=== PATIENT | female | born 1955 ===

== ENCOUNTER 2017-03-04 08:52 | Day surgery (SDC) | payer OTHER ==
[2017-03-04] MEDS ORDERED: Lactated Ringer's 1,000 ML IV ONE (09:28)
[2017-03-04] MEDS ORDERED: Lidocaine 2% MPF (5 ml) Inj ONE (10:22)
[2017-03-04] MEDS ORDERED: Propofol 10 mg/ml Inj (20 ML) ONE (10:22)
[2017-03-04] MEDS ORDERED: Midazolam 2 MG/2 ML VIAL ONE (10:22)
[2017-03-04 10:59] VITALS: TEMP 97.2
[2017-03-04 11:13] VITALS: BP 137/70; PULSE 68; RESP 18; O2SAT 100
== END 2017-03-04 12:00 | disposition home or self-care (01) ==
LOC: H.ENDO 08:52
PROVIDERS: ATTEND Internal Medicine Gastroenterology
DX: Z12.11 Encounter for screening for malignant neoplasm of colon (principal); R06.83 Snoring; E78.5 Hyperlipidemia, unspecified; I10 Essential (primary) hypertension; R25.2 Cramp and spasm; K57.30 Diverticulosis of large intestine without perforation or abscess without bleeding; K29.50 Unspecified chronic gastritis without bleeding
CPT/HCPCS: 43239; 45378; 88305; 88342; J2250; J2704; J7120

== ENCOUNTER 2017-09-08 17:26 | Emergency (ER) | payer OTHER ==
[2017-09-08 17:39] VITALS: RESP 16
--- NOTE | 2017-09-08 18:44 | ED PDOC ---
HPI: Abdomen Time Seen by Provider: 09/08/17 17:30 Chief Complaint (Nursing): Abdominal Pain Chief Complaint (Provider): Abdominal Pain History Per: Patient History/Exam Limitations: no limitations Onset/Duration Of Symptoms: Days (x3) Location Of Pain/Discomfort: RUQ. denies: LUQ, Suprapubic Associated Symptoms: denies: Fever, Diarrhea Additional Complaint(s): 61 year old female, with a past medical history of a cardiac ablation (she doesnt know the type of ablation, for what rhythm), presents to the ED complaining of right upper quadrant abdominal pain radiating to the back, onset 3 days ago. denies rash. Patient had a cardiac ablation done at [facility] last week. Patient states she doesn't have pain now but had pain prior to arrival. Denies fever, diarrhea, hematuria, flank pain and lower abdominal pain. PMD: Dr. Alesia Garces Inserter: Dr. Cornell Past Medical History Reviewed: Historical Data, Nursing Documentation, Vital Signs Vital Signs: Last Vital Signs Temp 98.0 F 09/08/17 23:57 Pulse 89 09/08/17 23:57 Resp 16 09/08/17 23:57 BP 131/78 09/08/17 23:57 Pulse Ox 98 09/08/17 23:57 - Medical History PMH: HTN, Hypercholesterolemia Denies: Chronic Kidney Disease Other PMH: Cardiac Ablation - Surgical History Surgical History: Appendectomy, Cholecystectomy - Family History Family History: States: Unknown Family Hx - Social History Current smoker - smoking cessation education provided: No Alcohol: None Drugs: Denies - Immunization History Hx Tetanus Toxoid Vaccination: No Hx Influenza Vaccination: Yes Hx Pneumococcal Vaccination: Yes - Home Medications Home Medications: Ambulatory Orders Medication Instructions Recorded Amoxicillin/Clavulanate [Augmentin 1 tab PO BID #20 tab 07/21/17 875 MG-125 MG] Aspirin [Hypoluxo Aspirin] 81 mg PO DAILY #30 tab.chew 07/21/17 Atorvastatin [Lipitor] 20 mg PO DAILY 30 Days tab 07/21/17 Furosemide [Lasix] 20 mg PO DAILY #30 tab 07/21/17 Metoprolol Succinate [Toprol XL] 100 mg PO DAILY #30 tab 07/21/17 Montelukast [Singulair] 10 mg PO DAILY #30 tab 07/21/17 Prednisone 10 mg PO BID #3 tab.ds.pk 07/21/17 Saccharomyces Boulardi [Florastor] 250 mg PO BID #40 cap 07/21/17 amLODIPine [Norvasc] 10 mg PO DAILY #30 07/21/17 Nitrofurantoin Macrocrystals 100 mg PO BID #14 cap 09/08/17 [Macrobid] - Allergies Allergies/Adverse Reactions: Allergies Allergy/AdvReac Type Severity Reaction Status Date / Time No Known Allergies Allergy Verified 09/08/17 17:37 Review of Systems ROS Statement: Except As Marked, All Systems Reviewed And Found Negative Constitutional: Negative for: Fever Gastrointestinal: Positive for: Abdominal Pain (right upper quadrant abdominal pain; no flank pain, no lower abdominal pain). Negative for: Diarrhea Genitourinary Female: Negative for: Hematuria Physical Exam - Reviewed Nursing Documentation Reviewed: Yes Vital Signs Reviewed: Yes - Physical Exam Appears: Positive for: Non-toxic, No Acute Distress Head Exam: Positive for: ATRAUMATIC, NORMOCEPHALIC Skin: Positive for: Normal Color, Warm, Dry. Negative for: Rash Eye Exam: Positive for: Normal appearance, EOMI, PERRL ENT: Positive for: Normal ENT Inspection Neck: Positive for: Normal, Painless ROM, Supple Cardiovascular/Chest: Positive for: Regular Rate, Rhythm. Negative for: Murmur Respiratory: Positive for: Normal Breath Sounds. Negative for: Wheezing Gastrointestinal/Abdominal: Positive for: Normal Exam, Bowel Sounds, Soft, Tenderness (right upper quadrant tenderness; no suprapubic tenderness) Back: Positive for: Normal Inspection. Negative for: L CVA Tenderness, R CVA Tenderness, Vertebral Tenderness Extremity: Positive for: Normal ROM. Negative for: Pedal Edema, Deformity Neurologic/Psych: Positive for: Alert, Oriented. Negative for: Motor/Sensory Deficits - Laboratory Results Result Diagrams: 09/08/17 18:51 09/08/17 18:51 - ECG O2 Sat by Pulse Oximetry: 97 (RA) Pulse Ox Interpretation: Normal Medical Decision Making Medical Decision Making: Time: 1812 Plan: ruq abdominal pain rule out cholecystitis -- CMP -- CBC with differentials -- Urine C&S -- Urinalysis -- Gallbladder & Common Duct US Time: 2048 GALLBLADDER & COMMON DUCT US FINDINGS: Liver: Hepatic steatosis. Measures 12.8 cm. Gallbladder: Status post cholecystectomy. Common bile duct: Measures up to 3 mm. Pancreas: Pancreas obscured by bowel gas. Right kidney: No hydronephrosis. IMPRESSION: Hepatic steatosis. Thank you for allowing us to participate in the care of your patient. Dictated and Authenticated by: Carine Reddy MD 09/08/2017 8:49 PM Eastern Time ([place] & [place]) Time: 2049 -- Patient's lab results appear slightly anemic, slightly elevated LFTs, borderline UTI - pt aware of results -- Waiting on US for further diagnosis. Time: 2124 Plan: -- CT Abd & Pelvis W/o PO or IV Contrast -- EKG noted. Time: 22:41 CT Abd & Pelvis W/o PO or IV Contrast Results FINDINGS: Limitations: Lack of intravenous contrast. Lung bases: Minimal atelectasis/scarring. 0.2 cm RIGHT lower lobe nodule. RML calcified granuloma. Heart: Borderline cardiomegaly. Valvular calcifications. ABDOMEN: Liver: Unremarkable. Gallbladder and bile ducts: Cholecystectomy. No significant ductal dilation. Pancreas: Unremarkable. No ductal dilation. Spleen: No splenomegaly. Adrenals: No mass. Kidneys and ureters: No renal calculi. No hydronephrosis. Stomach and bowel: Scattered diverticula within colon. No associated inflammatory stranding. Segmental areas of probable underdistention of LEFT colon. No definite mural thickening. No obstruction. PELVIS: Appendix: Appendectomy. Bladder: Unremarkable. No stones. Reproductive: Unremarkable as visualized. ABDOMEN and PELVIS: Intraperitoneal space: No significant fluid collection. No free air. Bones/joints: Mild degenerative changes of spine. No acute fracture. Soft tissues: Moderate sized midline ventral hernia containing fat. Injection granulomas within gluteal soft tissues. Vasculature: Moderate atherosclerotic disease. No aneurysm. Lymph nodes: No pathologically enlarged lymph nodes. IMPRESSION: 1. Diverticulosis without definite CT evidence of diverticulitis. 2. Pulmonary nodule. For low-risk patients, no follow-up is necessary. For high- risk patients (smoking history or other known risk factors) an optional CT at 12 months could be performed. 3. Incidental/non-acute findings are described above. Patient aware of results including pulmonary nodule. pt tolerated po. pt appears comfortable, in no distress pt stable for discharge home. . Scribe Attestation: Documented by Daya Bhatti, acting as a scribe for Opal Brewer MD. Provider Scribe Attestation: All medical record entries made by the Scribe were at my direction and personally dictated by me. I have reviewed the chart and agree that the record accurately reflects my personal performance of the history, physical exam, medical decision making, and the department course for this patient. I have also personally directed, reviewed, and agree with the discharge instructions and disposition. Disposition - Clinical Impression Clinical Impression: Abdominal pain - Patient ED Disposition Is Patient to be Admitted: No Counseled Patient/Family Regarding: Studies Performed, Diagnosis, Need For Followup - Disposition Disposition: Routine/Home Disposition Time: 19:40 Condition: IMPROVED Additional Instructions: follow up with your doctor in 1-2 days also follow up for pulmonary nodule noted on CT return to the ED with any worsening or concerning symptoms Prescriptions: Nitrofurantoin Macrocrystals [Macrobid] 100 mg PO BID #14 cap Instructions: Urinary Tract Infection, Adult (DC), Nausea and Vomiting, Adult ( DC) Forms: [facility] (Amharic)
[2017-09-08 18:56] LABS: BASO # 0.1 K/uL (0.0-0.2); BASO % 1.1 % (0.0-2.0); EOS # 0.2 K/uL (0.0-0.7); EOS % 1.9 % (0.0-4.0); HEMOGLOBIN 11.4 g/dL (12.0-16.0); LYMPH # 2.4 K/uL (1.0-4.3); LYMPH % 27.3 % (20.0-40.0); MEAN CELL VOLUME 88.8 fl (81.0-99.0); MEAN CORPUSCULAR HEMOGLOBIN 29.9 pg (27.0-31.0); MEAN CORPUSCULAR HGB CONC 33.7 g/dL (33.0-37.0); MEAN PLATELET VOLUME 8.3 fl (7.2-11.7); MONO # 0.7 K/uL (0.0-0.8); MONO % 7.6 % (0.0-10.0); NEUT # 5.5 K/uL (1.8-7.0); NEUT % 62.1 % (50.0-75.0); NRBC % 0.1 % (0.0-0.0); RBC 3.8 Mil/uL (3.80-5.20); RED CELL DISTRIBUTION WIDTH 21.7 % (11.5-14.5); WHITE BLOOD COUNT 8.9 K/uL (4.8-10.8)
[2017-09-08 19:03] LABS: SQUAMOUS EPITHIAL 5 /hpf (0-5); URINE BILIRUBIN NEGATIVE (NEGATIVE); URINE BLOOD SMALL (NEGATIVE); URINE CLARITY SLIGHTY-CLOUDY (Clear); URINE COLOR YELLOW (YELLOW); URINE GLUCOSE (UA) NEG (Normal); URINE LEUKOCYTE ESTERASE TRACE Leu/uL (Negative); URINE PROTEIN NEGATIVE (NEGATIVE); URINE UROBILINOGEN 0.2-1.0 mg/dL (0.2-1.0)
[2017-09-08 19:13] LABS: ALBUMIN 4.3 g/dL (3.5-5.0); ALT/SGPT 55 U/L (9-52); AST/SGOT 46 U/L (14-36); BLOOD UREA NITROGEN 12 mg/dl (7-17); CALCIUM 9.2 mg/dL (8.4-10.2); GFR AFRICAN-AMERICAN > 60; GFR NON-AFRICAN AMERICAN > 60
--- NOTE | 2017-09-08 22:42 | CT ---
EXAM: CT Abdomen and Pelvis Without Intravenous Contrast CLINICAL HISTORY: 61 years old, female; Pain; Abdominal pain; Localized; Right upper quadrant (ruq); Prior surgery; Surgery date: 6+ months; Surgery type: Gb removed. Append. Removed. - 1; Additional info: Abd pain TECHNIQUE: Axial computed tomography images of the abdomen and pelvis without intravenous contrast. All CT scans at this facility use one or more dose reduction techniques, viz.: automated exposure control; ma/kV adjustment per patient size (including targeted exams where dose is matched to indication; i.e. head); or iterative reconstruction technique. Coronal and sagittal reformatted images were created and reviewed. COMPARISON: US - GALLBLADDER COMMON DUCT 2017-09-08 20:33 FINDINGS: Limitations: Lack of intravenous contrast. Lung bases: Minimal atelectasis/scarring. 0.2 cm RIGHT lower lobe nodule. RML calcified granuloma. Heart: Borderline cardiomegaly. Valvular calcifications. ABDOMEN: Liver: Unremarkable. Gallbladder and bile ducts: Cholecystectomy. No significant ductal dilation. Pancreas: Unremarkable. No ductal dilation. Spleen: No splenomegaly. Adrenals: No mass. Kidneys and ureters: No renal calculi. No hydronephrosis. Stomach and bowel: Scattered diverticula within colon. No associated inflammatory stranding. Segmental areas of probable underdistention of LEFT colon. No definite mural thickening. No obstruction. PELVIS: Appendix: Appendectomy. Bladder: Unremarkable. No stones. Reproductive: Unremarkable as visualized. ABDOMEN and PELVIS: Intraperitoneal space: No significant fluid collection. No free air. Bones/joints: Mild degenerative changes of spine. No acute fracture. Soft tissues: Moderate sized midline ventral hernia containing fat. Injection granulomas within gluteal soft tissues. Vasculature: Moderate atherosclerotic disease. No aneurysm. Lymph nodes: No pathologically enlarged lymph nodes. IMPRESSION: 1. Diverticulosis without definite CT evidence of diverticulitis. 2. Pulmonary nodule. For low-risk patients, no follow-up is necessary. For high-risk patients (smoking history or other known risk factors) an optional CT at 12 months could be performed. 3. Incidental/non-acute findings are described above.
[2017-09-08 23:58] VITALS: BP 131/78; PULSE 89; TEMP 98
--- NOTE | 2017-09-09 08:21 | CARD ---
APPROVED REPORT EKG Measurement Heart [id number] <Conclusion> Sinus rhythm with premature supraventricular complexes Right bundle branch block Abnormal ECG
--- NOTE | 2017-09-09 09:06 | US ---
HISTORY: right upper quadrant pain COMPARISON: None. TECHNIQUE: Sonographic evaluation of the right upper quadrant of the abdomen. FINDINGS: LIVER: Measures 12.8 cm in length. Normal echogenicity of the liver parenchyma. No mass. No intrahepatic bile duct dilatation. GALLBLADDER: Nonvisualized consistent with prior cholecystectomy COMMON BILE DUCT: Measures 3.1 mm. No stones. No dilatation. PANCREAS: Not well-visualized hence not assessable on this exam -secondary to bowel gas and body habitus RIGHT KIDNEY: Measures 10.1 x 5.6 x 5.4 cm in length. Normal echogenicity. No calculus, mass, or hydronephrosis. AORTA: No aneurysmal dilatation. IVC: Unremarkable. OTHER FINDINGS: None . IMPRESSION: Status postcholecystectomy. No dilated intra or extrahepatic bile ducts. Pancreas not assessable due to obscuring bowel gas and body habitus
[2017-09-09 17:25] VITALS: O2SAT 97
== END 2017-09-09 00:08 | disposition home or self-care (01) ==
LOC: H.ER 17:26
DX: R10.9 Unspecified abdominal pain (principal); I10 Essential (primary) hypertension; Z79.82 Long term (current) use of aspirin; E78.00 Pure hypercholesterolemia, unspecified
CPT/HCPCS: 74176; 76705; 80053; 81003; 81025; 85025; 87086; 93005; 99284; J2270